=== PATIENT | female | born 1990 | race Hispanic/Latino ===

== ENCOUNTER 2017-11-14 12:15 | Emergency (ER) | payer OTHER ==
[~2017-11-14] VITALS: Ht 160 cm; Wt 117.9 kg
[2017-11-14] MEDS ORDERED: NORCO 10-325 T1 EACH PO (12:25)
[2017-11-14] MEDS ORDERED: CYCLOBENZAPRINE5 MG PO (12:25)
[2017-11-14] MEDS ORDERED: HYDROXYZINE HCL25 MG PO (12:26)
[2017-11-14] MEDS ORDERED: CEFTRIAXONE SOD 1 GM VIAL IM ONE (12:45)
[2017-11-14] MEDS ORDERED: KETOROLAC TROMETHAMINE 60 MG/2 ML VIAL IM ONE (12:45)
== END 2017-11-14 13:33 | disposition home or self-care (01) ==
LOC: FSED 12:15
DX: R30.0 Dysuria (principal); R10.30 Lower abdominal pain, unspecified; N30.91 Cystitis, unspecified with hematuria
CPT/HCPCS: 74176; 81003; 81025; 99284; J0696; J1885